=== PATIENT | male | born 1975 ===

== ENCOUNTER 2016-07-06 23:15 | Emergency (ER) | payer SELFPAY ==
[~2016-07-06] VITALS: Ht 185.4 cm; Wt 80.0 kg
[2016-07-06 23:17] VITALS: Ht 185.4 cm; Wt 80.0 kg
== END 2016-07-07 01:32 | disposition left against medical advice (07) ==
LOC: FTE 23:15
DX: Z53.21 Procedure and treatment not carried out due to patient leaving prior to being seen by health care provider (principal)